=== PATIENT | female | born 1985 | race Caucasian/White ===

== ENCOUNTER 2018-08-01 17:15 | Outpatient (REF) | payer MEDICAID, SELFPAY ==
--- NOTE | 2018-08-01 15:00 | PAPFT_PTH ---
PATIENT: Bindu Diana LOC: N U#:[id number] AGE/SX: 32/F ROOM: RE08/01/[address]: CIRA Leon : 1985 BED: DIS: 08/01/2018 SPEC #: [id number] RECD: 08/01/18 18:49 STATUS: FARHEEN REDionna #: [id number] DIANE: 08/01/18 15:[address]: Layne Lee DEPT: [facility] Cytology RECD BY: Alycia Dobbs Tissues: 1 - CX/ENDOCX FOR PAP SMEARS Procedures: PAP THIN PREP/UVM Screening HPV DNA PROBE Comments: [id number]
== END 2018-08-01 17:35 ==
LOC: LBN 17:15
PROVIDERS: PCP Nurse Practitioner Family; Visit Provider Nurse Practitioner Family
DX: Z12.4 Encounter for screening for malignant neoplasm of cervix (principal); Z11.51 Encounter for screening for human papillomavirus (HPV)
CPT/HCPCS: 88142; 87624

== ENCOUNTER 2018-09-07 07:53 | Outpatient (CLI) | payer MEDICAID, SELFPAY ==
[2018-09-07 13:28] LABS: Cholesterol 231 mg/dL (50-200); HDL Cholesterol 68 mg/dL (40-60); LDL CHOLESTEROL 148 mg/dL (<100); Triglyceride 118 mg/dL (30-150)
== END 2018-09-07 08:13 ==
PROVIDERS: PCP Nurse Practitioner Family; Visit Provider Nurse Practitioner
DX: E05.90 Thyrotoxicosis, unspecified without thyrotoxic crisis or storm (principal); Z13.220 Encounter for screening for lipoid disorders
CPT/HCPCS: 36415; 80061; 83721; 84443

== ENCOUNTER 2018-09-26 14:14 | Outpatient (CLI) | payer MEDICAID, SELFPAY ==
[2018-09-26 15:58] LABS: FREE T4 1.11 ng/dL (0.76-1.46); TSH 3.05 uIU/mL (0.358-3.74)
== END 2018-09-26 14:34 ==
PROVIDERS: PCP Nurse Practitioner Family; Visit Provider Nurse Practitioner Family
DX: E05.90 Thyrotoxicosis, unspecified without thyrotoxic crisis or storm (principal)
CPT/HCPCS: 36415; 84439; 84443

== ENCOUNTER 2018-10-31 11:17 | Outpatient (CLI) | payer MEDICAID, SELFPAY ==
[2018-10-31 12:00] LABS: Abs Immature Grans 0.02 k/cumm (0.0-0.09); Absolute Basophil Count 0.02 k/cumm (0.0-0.2); Absolute Eosinophil Count 0.24 k/cumm (0.0-0.7); Absolute Lymphocyte Count 1.86 k/cumm (1.2-3.4); Absolute Monocyte Count 0.37 k/cumm (0.11-0.7); Absolute Neutrophil Count 4.67 k/cumm (1.2-6.7); Basophils % 0.3; Eosinophils % 3.3; HCT 36.4 % (36.0-46.0); HGB 12.6 g/dL (12.0-15.5); Immature Grans % 0.3; Lymphocytes % 25.9; Mean Corp. HGB Concentration 34.6 g/dL (32.0-36.0); Mean Corpuscular Hemoglobin 32.1 pg (27.0-33.0); Mean Corpuscular Volume 92.9 fL (80-95); Mean Platelet Volume 10.5 fL (8.0-11.0); Monocytes % 5.2; Platelet Count 219 x1000/uL (130-400); RBC 3.92 m/cumm (4.00-5.20); RBC Distribution Width 12.3 % (11.7-14.6); White Blood Cell Count 7.18 k/cumm (4.4-10.8)
[2018-10-31 13:09] LABS: *AMPHETAMINES SCREEN URINE Negative (Negative); *BARBITURATES SCREEN URINE Negative (Negative); *BENZODIAZEPINES SCREEN URINE Negative (Negative); Cannabinoids THC Negative (Negative); Cocaine Screen,Urine Negative (Negative); METHADONE URINE SCREEN Negative (Negative); OPIATES URINE SCREEN Negative (Negative)
[2018-10-31 13:15] LABS: Bilirubin Negative (Negative); Blood Negative (Negative); Clarity Cloudy; Glucose Negative (Negative); Ketones Negative (Negative); Leukocyte Esterase Negative (Negative); Nitrite Negative (Negative); Urobilinogen 0.2 EU/dL (Up TO 0.2)
[2018-10-31 13:22] LABS: Tricyclic Antidepressants Negative (Negative)
[2018-10-31 13:24] LABS: TSH (W/Ref FT4) 1.46 uIU/mL (0.358-3.74)
[2018-11-01 09:51] LABS: Hepatitis C Ab w Rflx HCV PCR Negative (NEGAT)
[2018-11-01 09:52] LABS: HIV-1/2 Ag & Ab Screen Negative (NEGAT)
[2018-11-01 10:01] LABS: Hepatitis B Surface Ag Negative (NEGAT)
[2018-11-01 11:39] LABS: Rubella IgG Ab (UVM) Positive; Syphilis Serology (RPR) Negative (Negative); Varicella IgG Antibody Positive
[2018-11-05 10:01] LABS: Buprenorphine Negative; Norbuprenorphine Negative
== END 2018-10-31 11:37 ==
PROVIDERS: PCP Nurse Practitioner Family; Visit Provider Advanced Practice Midwife
DX: Z34.91 Encounter for supervision of normal pregnancy, unspecified, first trimester (principal); Z11.4 Encounter for screening for human immunodeficiency virus [HIV]; Z11.59 Encounter for screening for other viral diseases; Z01.84 Encounter for antibody response examination; Z11.3 Encounter for screening for infections with a predominantly sexual mode of transmission
CPT/HCPCS: 36415; 80055; 80307; 86787; 86803; 86850; 86900; 86901; 87340; 87389; 81003; 84443; 86592; 86762; 87086

== ENCOUNTER 2018-12-19 00:40 | Outpatient (CLI) | payer MEDICAID, SELFPAY ==
--- NOTE | 2018-12-19 16:29 | DI.US_ITS ---
SYMPTOM/DIAGNOSIS: ROUTINE [facility] OB ULTRASOUND: The fetus was in variable position during the exam. The placenta is posterior. The biometric measurements correspond to 18 weeks 6 days. The amount of amniotic fluid appears visually normal. No abnormalities are seen. IMPRESSION: survey is within normal limits. Many abnormalities cannot be diagnosed. A normal exam does not exclude a congenital anomaly. Radiology No. [id number] LMP: Exam Date:12/19/18 [facility] wks days on EDC ([facility]) 05/20/19 Confirmed: HISTORY: SURVEY PREDICTED GESTATIONAL AGE NUMBER 18 +2 weeks with a range of 17 +2 week to 19 +2 weeks. 1 Determined by___1STUS___LMP___HISTORY Info. pertaining to fetus # PLACENTA PRESENTATION Grade I Cephalic___ Anterior___Posterior_XX__ Breech____ Right Left Transverse(head right___ Fundal___Low-lying___Previa___ Transverse(head left___ Varying___XX___ BIOMETRY AMNIOTIC FLUID BPD: 42 mm 18 +6 weeks Normal HC: 158 mm 18 +5 weeks AC: 133 mm 18 +6 weeks FL: 29 mm 19 weeks AMNIOTIC FLUID INDEX >26 WK CRL: mm weeks Cisterna Magna: 3.9 mm CI: 79.3 RUQ: LUQ Cerebellum: 1.84 cm EFW: 261 grams 79% Percentile RLQ: LLQ Total: cms Composite AGE= 18 +6 wks EDC by US__05/16/19 BIOPHYSICAL PROFILE ANATOMY IDENTIFIED SCORE 0/2 Heart: 4-Chamber_X__Rate:BPM___139 BPM__ LVOT:___X RVOT:__X Amniotic Fluid(>2cms)____ Stomach:__X Kidneys:__X Respirations (>30 secs) Bladder:___X Post. Fossa:__X Body Flex/Extension 3 vessel cord:__X Ventricles:___X cord insertion:__X___ Lips:___X_ Extremity Flex/Extension spinal morphology:__X Nose: X Total Score= Palate:__X NS=not seen
== END 2018-12-19 01:00 ==
PROVIDERS: PCP Nurse Practitioner; Visit Provider Advanced Practice Midwife
DX: Z34.92 Encounter for supervision of normal pregnancy, unspecified, second trimester (principal)
CPT/HCPCS: 76805

== ENCOUNTER 2018-12-19 13:59 | Outpatient (REF) | payer MEDICAID, SELFPAY ==
[2018-12-20 14:50] LABS: Chlamydia Result Negative; GC Result Negative; Specimen Description URINE
== END 2018-12-19 14:19 ==
LOC: LBN 13:59
PROVIDERS: PCP Nurse Practitioner; Visit Provider Advanced Practice Midwife
DX: Z34.91 Encounter for supervision of normal pregnancy, unspecified, first trimester (principal); Z11.3 Encounter for screening for infections with a predominantly sexual mode of transmission
CPT/HCPCS: 87491; 87591

== ENCOUNTER 2019-02-06 15:04 | Outpatient (CLI) | payer MEDICAID, SELFPAY ==
[2019-02-06 16:49] LABS: TSH (W/Ref FT4) 1.29 uIU/mL (0.358-3.74)
== END 2019-02-06 15:24 ==
PROVIDERS: PCP Nurse Practitioner; Visit Provider Advanced Practice Midwife
DX: E03.9 Hypothyroidism, unspecified (principal)
CPT/HCPCS: 36415; 84443

== ENCOUNTER 2019-02-27 02:00 | Outpatient (CLI) | payer MEDICAID, SELFPAY ==
[2019-02-27 08:21] LABS: HCT 35.4 % (36.0-46.0); Mean Corp. HGB Concentration 33.9 g/dL (32.0-36.0); Mean Corpuscular Hemoglobin 32.3 pg (27.0-33.0); Mean Corpuscular Volume 95.4 fL (80-95); Mean Platelet Volume 10.9 fL (8.0-11.0); Platelet Count 181 x1000/uL (130-400); RBC 3.71 m/cumm (4.00-5.20); RBC Distribution Width 12.8 % (11.7-14.6); White Blood Cell Count 8.66 k/cumm (4.4-10.8)
[2019-02-27 08:26] LABS: Glucose,1 Hr (Glucola) 112 mg/dL (80-140)
== END 2019-02-27 02:20 ==
PROVIDERS: PCP Nurse Practitioner; Visit Provider Advanced Practice Midwife
DX: Z34.93 Encounter for supervision of normal pregnancy, unspecified, third trimester (principal)
CPT/HCPCS: 36415; 82950; 85027

== ENCOUNTER 2019-04-07 01:07 | Outpatient (CLI) | payer MEDICAID, SELFPAY ==
--- NOTE | 2019-04-07 07:51 | DI.US_ITS ---
Predicted Gestational Age: Indication/History:GROWTH,CHECK NECK/THYROID HYPERTHYROIDISM, E05.00,TYROTOXICOSIS 33.6 Wks Range: 32.6 to 34.6 Prior US done on: Determined by: First US LMP History EDC by prior US: 05/20/19 For multiple gestations: Baby PLACENTA: Grade: II Location: Anterior Posterior X PRESENTATION: RT LT LOW LYING PREVIA Cephalic X Trans (Head RT LT ) Varied Breech BIOMETRY: Anatomy Identified: BPD: 87 mm 35.2 wks 4 chamber Heart Heart Rate BPM: 155 HC: 318 mm 35.5 wks LVOT Post Fossa AC: 305 mm 34.3 wks RVOT Ventricles FL: 66 mm 34.1 wks Stomach Nose Bladder Lips Cisterna Magna: mm CI: 79 Kidneys Palate Cerebellum: mm 3 vessel cord Spine EFW: 2463 grms 65TH % Cord Insertion NS= not seen Composite Age (US) 34.6 wks Many abnormalities cannot be diagnosed. A normal exam does not exclude congenital abnormality. EDC by US 05/13/19 Amniotic Fluid Index: Normal COMMENTS: RUQ: 6.04 LUQ: RLQ: 5.10 LLQ: 4.10 Total: 15.2 cm Biophysical Profile: Score 0/2 RAGHAVENDRA (>2cm) Respirations (>30 sec) Body flexion/extension Extremity flexion/extension TOTAL SCORE Comparison is made with 12/19/18. The fetus is in cephalic position. The placenta is posterior. The biometric measurements correspond to 34 weeks 6 days. The estimated weight is 2463 grams, corresponding to the 65th percentile. The amniotic fluid appears normal with an RAGHAVENDRA of 15.2. The neck is well seen on this exam. No abnormality is identified. The thyroid appears within normal limits in size.
[2019-04-07 09:13] LABS: FREE T4 1.12 ng/dL (0.76-1.46); TSH 0.77 uIU/mL (0.358-3.74)
[2019-04-14 16:41] LABS: Thyroid Stimulating Immunoglob <1.0 TSI index (<=1.3)
== END 2019-04-07 01:27 ==
PROVIDERS: PCP Nurse Practitioner; Visit Provider Advanced Practice Midwife
DX: E03.9 Hypothyroidism, unspecified (principal); E05.00 Thyrotoxicosis with diffuse goiter without thyrotoxic crisis or storm; Z34.93 Encounter for supervision of normal pregnancy, unspecified, third trimester
CPT/HCPCS: 36415; 76816; 84439; 84443; 84445

== ENCOUNTER 2019-04-24 10:35 | Outpatient (REF) | payer MEDICAID, SELFPAY ==
[2019-04-24 12:53] LABS: *AMPHETAMINES SCREEN URINE Negative (Negative); *BARBITURATES SCREEN URINE Negative (Negative); *BENZODIAZEPINES SCREEN URINE Negative (Negative); Cannabinoids THC Negative (Negative); Cocaine Screen,Urine Negative (Negative); METHADONE URINE SCREEN Negative (Negative); OPIATES URINE SCREEN Negative (Negative)
[2019-04-24 12:54] LABS: Tricyclic Antidepressants Negative (Negative)
[2019-04-29 11:40] LABS: Buprenorphine Negative; Norbuprenorphine Negative
== END 2019-04-24 10:55 ==
LOC: LBN 10:35
PROVIDERS: PCP Nurse Practitioner; Visit Provider Advanced Practice Midwife
DX: Z34.93 Encounter for supervision of normal pregnancy, unspecified, third trimester (principal); Z36.85 Encounter for antenatal screening for Streptococcus B
CPT/HCPCS: 80307; 87081

== ENCOUNTER 2019-04-30 10:16 | Outpatient (CLI) | payer MEDICAID, SELFPAY | END 2019-04-30 10:36 | PROVIDERS: PCP Nurse Practitioner; Visit Provider Advanced Practice Midwife | DX: O36.8930 Maternal care for other specified fetal problems, third trimester, not applicable or unspecified (principal); Z3A.37 37 weeks gestation of pregnancy | CPT/HCPCS: 59025 ==

== ENCOUNTER 2019-05-15 09:12 | Outpatient (CLI) | payer MEDICAID, SELFPAY ==
[2019-05-15 10:53] LABS: ALT 28 U/L (12-78); AST 24 U/L (15-37); Albumin 2.7 g/dL (3.4-5.0); Alkaline Phosphatase 306 U/L (46-116); Bilirubin, Direct 0.18 mg/dL (0.00-0.20); Bilirubin, Total 0.5 mg/dL (0.2-1.0); Total Protein 6.6 g/dL (6.4-8.2)
[2019-05-15 10:56] LABS: TSH (W/Ref FT4) 0.48 uIU/mL (0.358-3.74)
[2019-05-16 15:41] LABS: Bile Acids, Total 7 mcmol/L (<=10)
== END 2019-05-15 09:32 ==
PROVIDERS: Advanced Practice Midwife; PCP Nurse Practitioner; Visit Provider Advanced Practice Midwife
DX: Z34.93 Encounter for supervision of normal pregnancy, unspecified, third trimester (principal); E03.9 Hypothyroidism, unspecified
CPT/HCPCS: 36415; 80076; 82239; 84443

== ENCOUNTER 2019-05-16 07:53 | Outpatient (CLI) | payer MEDICAID, SELFPAY | END 2019-05-16 08:13 | PROVIDERS: PCP Nurse Practitioner; Visit Provider Advanced Practice Midwife | DX: O26.613 Liver and biliary tract disorders in pregnancy, third trimester (principal); Z3A.39 39 weeks gestation of pregnancy | CPT/HCPCS: 59025 ==

== ENCOUNTER 2019-05-18 14:09 | Outpatient (CLI) | payer MEDICAID, SELFPAY | END 2019-05-18 14:29 | PROVIDERS: PCP Nurse Practitioner; Visit Provider Advanced Practice Midwife | DX: O47.1 False labor at or after 37 completed weeks of gestation (principal); Z3A.39 39 weeks gestation of pregnancy ==

== ENCOUNTER 2019-05-18 14:13 | Observation (INO) | payer MEDICAID, SELFPAY | END 2019-05-18 14:30 | disposition home or self-care (01) | PROVIDERS: Admitting Provider Advanced Practice Midwife; PCP Nurse Practitioner; Visit Provider Advanced Practice Midwife | DX: O47.1 False labor at or after 37 completed weeks of gestation (principal); Z3A.39 39 weeks gestation of pregnancy | CPT/HCPCS: 59025; G0378 ==

== ENCOUNTER 2019-05-18 19:37 | Inpatient (IN) | payer MEDICAID, SELFPAY ==
[2019-05-18 20:04] LABS: HCT 39.9 % (36.0-46.0); HGB 13.5 g/dL (12.0-15.5); Mean Corp. HGB Concentration 33.8 g/dL (32.0-36.0); Mean Corpuscular Hemoglobin 31.3 pg (27.0-33.0); Mean Corpuscular Volume 92.4 fL (80-95); Mean Platelet Volume 12.2 fL (8.0-11.0); Platelet Count 136 x1000/uL (130-400); RBC 4.32 m/cumm (4.00-5.20); RBC Distribution Width 12.8 % (11.7-14.6); White Blood Cell Count 10.27 k/cumm (4.4-10.8)
[2019-05-18] MEDS: Oxytocin 10 UNITS/ML VIAL IM (21:03)
[2019-05-19] MEDS: Acetaminophen 325 MG TAB 650 MG PO ×3 (05:35→20:07)
[2019-05-19] MEDS: Levothyroxine 100 MCG TAB PO (06:43)
[2019-05-19 07:15] LABS: HCT 42.3 % (36.0-46.0); HGB 14.2 g/dL (12.0-15.5); Mean Corp. HGB Concentration 33.6 g/dL (32.0-36.0); Mean Corpuscular Hemoglobin 31.3 pg (27.0-33.0); Mean Corpuscular Volume 93.4 fL (80-95); Mean Platelet Volume 12.2 fL (8.0-11.0); Platelet Count 131 x1000/uL (130-400); RBC 4.53 m/cumm (4.00-5.20); White Blood Cell Count 14.97 k/cumm (4.4-10.8)
[2019-05-19] MEDS: Ibuprofen 600 MG TAB PO ×2 (10:50→20:07)
[2019-05-20] MEDS: Levothyroxine 100 MCG TAB PO (06:19)
[2019-05-20] MEDS: Acetaminophen 325 MG TAB 650 MG PO (06:51)
[2019-05-20] MEDS: Ibuprofen 600 MG TAB PO (06:51)
== END 2019-05-20 13:00 | disposition home or self-care (01) | DRG 807 ==
PROVIDERS: Admitting Provider Advanced Practice Midwife; PCP Nurse Practitioner; Visit Provider Advanced Practice Midwife
DX: O62.3 Precipitate labor (principal); Z37.0 Single live birth; Z3A.39 39 weeks gestation of pregnancy; Z67.40 Type O blood, Rh positive
CPT/HCPCS: 36415; 85027; 86850; 86900; 86901; J2590

== ENCOUNTER 2019-08-24 13:34 | Outpatient (CLI) | payer MEDICAID, SELFPAY ==
[2019-08-24 14:46] LABS: TSH (W/Ref FT4) 0.13 uIU/mL (0.36-3.74)
[2019-08-24 15:12] LABS: FREE T4 0.93 ng/dL (0.76-1.46)
== END 2019-08-24 13:54 ==
PROVIDERS: PCP Nurse Practitioner; Visit Provider Nurse Practitioner
DX: E03.9 Hypothyroidism, unspecified (principal)
CPT/HCPCS: 36415; 84439; 84443

== ENCOUNTER 2019-11-02 17:01 | Outpatient (REF) | payer MEDICAID, SELFPAY | END 2019-11-02 17:21 | LOC: NCHCN 17:01 | PROVIDERS: PCP Nurse Practitioner; Visit Provider Advanced Practice Midwife | DX: R39.15 Urgency of urination (principal) | CPT/HCPCS: 87086 ==

== ENCOUNTER 2020-08-16 02:42 | Outpatient (CLI) | payer MEDICAID, SELFPAY ==
[2020-08-16 08:27] LABS: TSH (W/Ref FT4) 0.48 uIU/mL (0.36-3.74)
== END 2020-08-16 03:02 ==
PROVIDERS: PCP Nurse Practitioner; Visit Provider Nurse Practitioner Adult Health
DX: E03.9 Hypothyroidism, unspecified (principal)
CPT/HCPCS: 36415; 84443

== ENCOUNTER 2020-09-12 14:39 | Outpatient (REF) | payer MEDICAID, SELFPAY ==
[2020-09-13 15:40] LABS: Chlamydia Result Negative (Negative); GC Result Negative (Negative)
== END 2020-09-12 14:59 ==
LOC: LBN 14:39
PROVIDERS: PCP Nurse Practitioner; Visit Provider Nurse Practitioner Family
DX: Z11.3 Encounter for screening for infections with a predominantly sexual mode of transmission (principal)
CPT/HCPCS: 87491; 87591

== ENCOUNTER 2020-09-23 02:11 | Outpatient (CLI) | payer MEDICAID, SELFPAY ==
--- NOTE | 2020-09-23 06:15 | DI.US_ITS ---
EXAM: US PELVIS TRANSVAGINAL CLINICAL HISTORY: abnormal vaginal bleeding,N93.9. TECHNIQUE: Transabdominal and transvaginal pelvic ultrasound was performed using standard protocol. COMPARISON: US US OB 2-3 trimester from 04/07/2019 FINDINGS: KIDNEYS: Kidneys are symmetric in size. No evidence of renal calculi. No evidence of hydronephrosis. No renal mass or cyst identified. UTERUS: Position: Anteverted. Size: 9.3 long by 4.9 AP by 5.9 transverse cm Endometrium: 0.7 cm. Normal for patient's menstrual status. Myometrium: Unremarkable. Cervix: Unremarkable. OVARIES: Right: 3.4 x 1.4 x 1.9 cm Cyst or mass: Small follicular cysts. Left: 2.2 x 1.7 x 1.8 cm Cyst or mass: Small follicular cysts. The largest measures 1 cm. DOPPLER: Color: Symmetric and uniform flow to both ovaries. No hyperemia. Duplex: Normal ovarian arterial waveforms visualized. CUL-DE-SAC: Free fluid: None. Other: None. IMPRESSION: 1. Normal sonographic appearance of the kidneys. 2. Normal-appearing uterus with endometrial stripe within normal limits. 3. Unremarkable bilateral ovaries. DATA REPOSITORY:
== END 2020-09-23 02:31 ==
PROVIDERS: PCP Nurse Practitioner; Visit Provider Nurse Practitioner Family
DX: N93.9 Abnormal uterine and vaginal bleeding, unspecified (principal)
CPT/HCPCS: 76830; 76856

== ENCOUNTER 2021-06-09 18:35 | Outpatient (REF) | payer MEDICAID, SELFPAY | END 2021-06-09 18:36 | disposition home or self-care (01) | LOC: LBN 18:35 | PROVIDERS: PCP Nurse Practitioner; Visit Provider Obstetrics & Gynecology | DX: N93.8 Other specified abnormal uterine and vaginal bleeding (principal) | CPT/HCPCS: 87480; 87510; 87660 ==

== ENCOUNTER 2021-06-30 01:41 | Outpatient (CLI) | payer MEDICAID, SELFPAY ==
--- NOTE | 2021-06-30 06:45 | DI.US_ITS ---
Exam(s) US PELVIS TRANSVAGINAL EXAM: US PELVIS TRANSVAGINAL CLINICAL HISTORY: check stripe,DYSFUNCTIONAL UTERINE BLEEDING,N93.8 TECHNIQUE: Transabdominal and transvaginal imaging was performed using standard protocol. COMPARISON: US US PELVIS TRANSVAGINAL from 09/23/2020 FINDINGS: KIDNEYS: Kidneys are symmetric in size. No evidence of renal calculi. No evidence of hydronephrosis. No renal mass or cyst identified. UTERUS: Anteverted. 8.4 x 4.4 x 5.2 cm. Endometrium: 5 millimeters. Homogeneous. Myometrium: Unremarkable. Cervix: Unremarkable. OVARIES: Right: Cyst or mass: None. Left: Cyst or mass: None. DOPPLER: Color: Symmetric and uniform flow to both ovaries. No hyperemia. Duplex: Normal ovarian arterial waveforms visualized. CUL-DE-SAC: Free fluid: None. IMPRESSION: 1. Normal-appearing uterus with endometrial stripe within normal limits. 2. Unremarkable bilateral ovaries. DATA REPOSITORY:
== END 2021-06-30 02:01 ==
PROVIDERS: PCP Nurse Practitioner; Visit Provider Obstetrics & Gynecology
DX: N93.8 Other specified abnormal uterine and vaginal bleeding (principal)
CPT/HCPCS: 76830; 76856

== ENCOUNTER 2021-09-08 13:09 | Outpatient (REF) | payer MEDICAID, SELFPAY | END 2021-09-08 13:10 | disposition home or self-care (01) | LOC: LBN 13:09 | PROVIDERS: PCP Nurse Practitioner; Visit Provider Obstetrics & Gynecology | DX: N93.8 Other specified abnormal uterine and vaginal bleeding (principal) | CPT/HCPCS: 87480; 87510; 87660 ==

== ENCOUNTER 2021-11-11 02:14 | Outpatient (CLI) | payer MEDICAID, SELFPAY ==
[2021-11-11 07:38] LABS: HCT 39.9 % (36.0-46.0); HGB 13.3 g/dL (11.2-15.7); MCH 30.9 pg (27.0-33.0); MCHC 33.3 % (32.0-36.0); MCV 92.6 fL (80-95); MPV 10.7 fL (8.0-11.0); Platelet Count 185 10^3/uL (130-400); RBC 4.31 10^6/uL (3.93-5.22); RDW 11.8 % (11.7-14.6); RDW-SD 40.2 fL; WBC 4.69 10^3/uL (4.4-10.8)
[2021-11-11 08:51] LABS: ALT 18 U/L (14-59); AST 9 U/L (15-37); Albumin 4.3 g/dL (3.4-5.0); Alkaline Phosphatase 50 U/L (46-116); Anion Gap 8.1 mmol/L (3-11); BUN 17 mg/dL (7-18); Bilirubin, Total 0.4 mg/dL (0.2-1.0); CO2 28.9 mmol/L (21.0-32.0); CREATININE 0.9 mg/dL (0.55-1.02); Calcium 9.1 mg/dL (8.5-10.1); Calculated LDL 160 mg/dL (<100); Chloride 103 mmol/L (98-107); Cholesterol 246 mg/dL (<200); Glucose 96 mg/dL (74-106); HDL Cholesterol 74 mg/dL (40-60); Potassium 4.4 mmol/L (3.5-5.1); Sodium 140 mmol/L (136-145); TSH (W/Ref FT4) 0.72 uIU/mL (0.36-3.74); Total Protein 7.8 g/dL (6.4-8.2); Triglyceride 61 mg/dL (<150)
== END 2021-11-11 02:15 | disposition home or self-care (01) ==
LOC: LBO 02:14
PROVIDERS: PCP Nurse Practitioner; Visit Provider Nurse Practitioner Adult Health
DX: E03.9 Hypothyroidism, unspecified (principal); E78.00 Pure hypercholesterolemia, unspecified; N93.8 Other specified abnormal uterine and vaginal bleeding
CPT/HCPCS: 36415; 80053; 80061; 85027; 84443

== ENCOUNTER 2022-11-17 12:19 | Outpatient (REF) | payer MEDICAID, SELFPAY | END 2022-11-17 12:20 | disposition home or self-care (01) | LOC: LBN 12:19 | PROVIDERS: PCP Nurse Practitioner Adult Health; Referring Provider Family Medicine; Visit Provider Family Medicine | DX: R30.0 Dysuria (principal) | CPT/HCPCS: 87086 ==

== ENCOUNTER 2022-11-20 15:22 | Outpatient (REF) | payer MEDICAID, SELFPAY ==
[2022-11-22 12:33] LABS: Chlamydia Result Negative (Negative); GC Result Negative (Negative)
== END 2022-11-20 15:23 | disposition home or self-care (01) ==
LOC: LBN 15:22
PROVIDERS: PCP Nurse Practitioner Adult Health; Visit Provider Obstetrics & Gynecology
DX: Z11.3 Encounter for screening for infections with a predominantly sexual mode of transmission (principal)
CPT/HCPCS: 87491; 87591

== ENCOUNTER 2022-12-17 02:31 | Outpatient (CLI) | payer MEDICAID, SELFPAY ==
[2022-12-17 16:31] LABS: TSH (W/Ref FT4) 0.56 uIU/mL (0.36-3.74)
== END 2022-12-17 02:32 | disposition home or self-care (01) ==
LOC: LBO 02:31
PROVIDERS: PCP Nurse Practitioner Adult Health; Visit Provider Nurse Practitioner Adult Health
DX: E03.9 Hypothyroidism, unspecified (principal)
CPT/HCPCS: 36415; 84443

== ENCOUNTER 2023-01-05 00:18 | Outpatient (CLI) | payer MEDICAID, SELFPAY ==
--- NOTE | 2023-01-05 06:45 | DI.US_ITS ---
Exam(s) US PELVIS TRANSVAGINAL EXAM: US PELVIS TRANSVAGINAL CLINICAL HISTORY: anatomy,ABNL VAGINAL BLEEDING, N93.9 TECHNIQUE: Ultrasound of the pelvis was performed both transabdominal and transvaginal. COMPARISON: US US PELVIS TRANSVAGINAL from 06/30/2021 FINDINGS: UTERUS: Nongravid and anteverted Measures 9 cm length x 4 cm AP x 6 cm wide. There appears to be a small fundal level fibroid measuring 1.4 x 1.0 cm. Endometrial thickness measures 4 mm. There is no fluid in the endometrial canal. There is, however, small hyperechoic sub endometrial foc us related to the posterior endometrium at mid uterine level. This measures approximately 2-3 millim eters. CERVIX: There are no obvious nabothian cysts. RIGHT OVARY: Measures 3.2 x 2.0 x 2.5 cm No significant cysts nor masses evident in the right ovary. LEFT OVARY: Measures 2.6 x 1.3 x 2.1 cm No significant cysts nor masses evident in the left ovary. CUL-DE-SAC: No free fluid evident. IMPRESSION: 1. Small 1.4 x 1.0 cm uterine fibroid. 2. Small hyperechoic focus subendometrial level in the posterior endometrium which measures 3 millime ters. Possible small calcific density. Benign appearance. Recommend repeat transvaginal ultrasound in 3 months. 3. No abnormal adnexal findings. No free fluid. DATA REPOSITORY:
== END 2023-01-05 00:38 ==
LOC: DI 00:19
PROVIDERS: PCP Nurse Practitioner Adult Health; Visit Provider Obstetrics & Gynecology
DX: N93.9 Abnormal uterine and vaginal bleeding, unspecified (principal)
CPT/HCPCS: 76830; 76856

== ENCOUNTER 2023-01-05 15:55 | Outpatient (REF) | payer MEDICAID, SELFPAY ==
--- NOTE | 2023-01-05 10:50 | PAPFT_PTH ---
PATIENT: Bindu Diana LOC: [facility]#:[id number] AGE/SX: 37/F ROOM: RE01/05/[address]: Sasha Hawley DO : 1985 BED: DIS: 01/05/2023 SPEC #: [id number] RECD: 01/05/23 17:08 STATUS: FARHEEN REQ #: [id number] DIANE: 01/05/23 10:[address]: Sasha Hawley DEPT: [facility] Cytology RECD BY: Alycia Dobbs ENTERED: 01/05/23 17:09 SP TYPE: PAPFT OTHR DR: Marylou Mcdowell APRN Tissues: 1 - CX/ENDOCX FOR PAP SMEARS Procedures: PAP THIN PREP/UVM Screening HPV DNA PROBE Comments: [id number]
== END 2023-01-05 15:56 | disposition home or self-care (01) ==
LOC: LBN 15:55
PROVIDERS: PCP Nurse Practitioner Adult Health; Visit Provider Obstetrics & Gynecology
DX: Z12.4 Encounter for screening for malignant neoplasm of cervix (principal); Z11.51 Encounter for screening for human papillomavirus (HPV)
CPT/HCPCS: 88142; 87624

== ENCOUNTER 2023-04-26 03:25 | Outpatient (CLI) | payer MEDICAID, SELFPAY ==
[2023-04-26 08:12] LABS: Abs Immature Grans 0.02 10^3/uL (0.0-0.06); Absolute Basophil Count 0.05 10^3/uL (0.0-0.2); Absolute Eosinophil Count 0.22 10^3/uL (0.0-0.7); Absolute Lymphocyte Count 1.44 10^3/uL (1.2-3.4); Absolute Monocyte Count 0.35 10^3/uL (0.1-0.8); Absolute Neutrophil Count 4.24 10^3/uL (1.2-6.7); Basophils % 0.8; Eosinophils % 3.5; HCT 39.9 % (36.0-46.0); HGB 13.2 g/dL (11.2-15.7); Immature Grans % 0.3; Lymphocytes % 22.8; MCH 31.7 pg (27.0-33.0); MCHC 33.1 % (32.0-36.0); MCV 96 fL (80-95); MPV 10.9 fL (8.0-11.0); Monocytes % 5.5; Neutrophils % 67.1; Platelet Count 177 10^3/uL (130-400); RBC 4.16 10^6/uL (3.93-5.22); RDW 12.1 % (11.7-14.6); RDW-SD 41.7 fL; WBC 6.32 10^3/uL (4.4-10.8)
== END 2023-04-26 03:26 | disposition home or self-care (01) ==
LOC: LBO 03:25
PROVIDERS: PCP Nurse Practitioner Adult Health; Visit Provider Obstetrics & Gynecology
DX: N93.8 Other specified abnormal uterine and vaginal bleeding (principal); D25.9 Leiomyoma of uterus, unspecified; Z01.818 Encounter for other preprocedural examination; Z01.812 Encounter for preprocedural laboratory examination
CPT/HCPCS: 36415; 86850; 86900; 86901; 85025

== ENCOUNTER 2023-04-28 06:21 | Inpatient (IN) | payer MEDICAID, SELFPAY ==
[2023-04-28] VITALS (26 sets, daily range): BP systolic 85–123; BP diastolic 47–79; PULSE 53–89; RESP 14–19; TEMP 34.7–36.7; O2SAT 95–100; BMI 21.8
--- NOTE | 2023-04-28 06:15 | W.ANESPRE ---
General Info Date of Service Date Performed: 04/28/23 Height: 5 ft 5 in Weight: 59.421 kg Body Mass Index (BMI): 21.8 Surgical Procedure: Operation Date: 04/28/23 07:40 Proposed Procedure Side Surgeon p Hysterectomy Vaginal Laparoscopic Assist, Bi-lat Salpingectomy, Possible NANCY, Cysto Sasha Hawley DO Meds Allergies and Home Medications Allergies Allergy/AdvReac Type Severity Reaction Status Date / Time shellfish derived Allergy Severe anaphalaxis Verified 04/28/23 06:36 methimazole Allergy Unknown rash and Verified 04/28/23 06:36 hives Home Medication Medication Instructions Recorded turkey tail 1 cap PO DIRECTED Immune health 08/28/20 magnesium oxide 400 mg PO DAILY 12/04/20 cranberry 400 mg capsule 400 mg PO DAILY 09/08/21 ascorbic acid 100 mg-elderberry 1 tab PO DAILY 12/05/21 fruit 50 mg chewable tablet multivitamin (Multiple Vitamins 1 tab PO DAILY 11/20/22 tablet) levothyroxine 100 mcg tablet 100 mcg PO DAILY #90 tabs 01/11/23 Current Visit Medications: Current Medications Generic Name Dose Route Start Last Admin Trade Name Freq PRN Reason Stop Dose Admin Ringer's Solution 1,000 mls @ 125 mls/hr 04/28/23 06:00 IV 05/27/23 23:59 INFUSION MARY JO Cefazolin Sodium/Dextrose 2 gm in 50 mls @ 100 mls/hr 04/28/23 06:00 Ancef Duplex IVPB 04/28/23 16:00 PREOP MARY JO IV Miscellaneous Supplies 1 each 04/28/23 06:00 Iv Access IV 05/27/23 23:59 DIRECTED MARY JO Sodium Chloride 0 ml 04/28/23 06:00 Normal Saline Flush 10 Ml Syr IV 05/27/23 23:59 PRN PRN Sodium Chloride 0 ml 04/28/23 06:00 Normal Saline 10 Ml Vial IJ 05/27/23 23:59 DIRECTED PRN Sterile Water 0 ml 04/28/23 06:00 Water,Injection,Sterile 10 Ml Vial IJ 05/27/23 23:59 DIRECTED PRN PFSH Active Problems Active Problems: Problem Status Onset Code Uterine fibroid D25.9 Yeast vaginitis B37.31 Urinary tract infection N39.0 Family history of first degree relative with dementia Z81.8 Elevated cholesterol E78.00 DUB (dysfunctional uterine bleeding) N93.8 Bacterial vaginosis N76.0, B96.89 Frequent headaches R51.9 Abnormal vaginal bleeding N93.9 Spotting N92.0 Urinary urgency R39.15 History of tobacco use Z87.891 Hypothyroid E03.9 Medical History Medical History Graves disease (05/15/14) [facility] 04/2014 Hyperthyroidism (04/18/14) Dx'ed 03/2014 (tachy on exam) REFER [facility] Infected sebaceous cyst of skin right cheek Surgical History Surgical History excision Follicuolar cyst w/ BX rgt cheek (02/25/17) Tobacco Smoking/Tobacco Use Status: Former Tobacco Use Alcohol Alcohol Intake: never Substance Use Substance use: Never Substance use type: does not use Prental History History 4 Para 4 Hx # Term Pregnancies 4 Multiple births 0 Hx # Pregnancies 0 Ectopic pregnancies 0 AB induced 0 Hx Number of Living Children 4 AB spontaneous 0 Past Pregnancies Del. Date GA/Weeks # Preg Succ Route Wgt Sex Labor Lgth Anesthesia Location Prov Complic 01/16/10 39 No vaginal 3486.991 g Male 3 hrs [facility] - Dr. Valladares 12/31/11 38 No vaginal 3543.69 g Female very fast, delivered on arrival [facility] - Dr. Valladares 10/09/16 38 No vaginal Female 3 hrs [facility] - [facility] 05/18/19 39 No vaginal 3997.283 g Male 1 hour 26 min. Ousmane Ag CNM Delivery Date: 10/09/16 Last Updated by: Flores Zhang nuchal arm Delivery Date: 05/18/19 Last Updated by: Mily Barr LPN precipitous labor ( < 3 hrs.) Vital Signs and Lab Results Vital Signs Most Recent Vital Signs in EMR: Temp Pulse Resp BP Pulse Ox 36.4 C L 89 18 123/67 100 04/28/23 06:20 04/28/23 06:20 04/28/23 06:20 04/28/23 06:20 04/28/23 06:20 Lab Results Blood Type / Crossmatch: Patient ABO/Rh O Positive 04/26/23 Antibody Screen NEGATIVE 04/26/23 Complete Blood Count: White Blood Count 6.32 10^3/uL (4.4-10.8) 04/26/23 08:05 Red Blood Count 4.16 10^6/uL (3.93-5.22) 04/26/23 08:05 Hemoglobin 13.2 g/dL (11.2-15.7) 04/26/23 08:05 Hematocrit 39.9 % (36.0-46.0) 04/26/23 08:05 Platelet Count 177 10^3/uL (130-400) 04/26/23 08:05 Complete Metabolic Panel: No Data to Display Liver Function Panel: No Data to Display Coagulation Panel: No Data to Display Cardiac Panel: No Data to Display Arterial Blood Gas: No Data to Display Venous Blood Gas: No Data to Display Pancreas Panel: No Data to Display Thyroid Panel: No Data to Display Infectious Disease: No Data to Display Blood Cultures: No Data to Display Toxicology Panel: No Data to Display Panel: No Data to Display Anesthesia Assessment and Plan Anesthesia History Personal History: No History of Anesthesia Complications Family History: No Family History of Anesthesia Complications Exercise Tolerance Exercise Tolerance: Metabolic Equivalents>4 Cardiac & Pulmonary Exam Cardiac Exam: Normal S1/S2 Heart Sounds Pulmonary Exam: Clear Bilateral Breath Sounds Implantable Cardiac Device Does patient have a Pacemaker or an ICD?: No Airway Exam Known Difficult Airway: No Mallampati Class: 3 Mouth Opening: Narrow (< 3cm) Thyromental Distance: Less than 3 cm Neck Range of Motion: Full ROM Neck Circumference: Normal Teeth Condition: Normal Dentition ASA Classification ASA Score: ASA 2 Emergency Case?: No NPO Status NPO Status: NPO Clears >2 hours, Solids >8 hours Status Status: Not Relevant due to Medical History Anesthesia Plan Resuscitation Status: Full Code Anesthesia Technique: General Anesthesia Airway Planned: Endotracheal Tube Monitors Used: Standard Monitors Preoperative Comments:: 37 yo female with abnormal bleeding for hysterectomy. Sig PMHx: former smoker, HTN, hyperthyroid/graves (followed at [facility] [place]. had hyperthyroid burnout and now hypothyroid, last TSH 0.56, on levothyroxine).
[2023-04-28] MEDS: Lactated Ringers 1,000 ML 125 ML IV ×3 (06:52→19:00)
[2023-04-28] MEDS: ceFAZolin 2 GM/50 ML BAG IVPB (08:00)
--- NOTE | 2023-04-28 09:15 | UTER_PTH ---
PATIENT: Bindu Diana LOC: OBS U#:[id number] AGE/SX: 37/F ROOM: OBS.305 RE04/28/[address]: Sasha Hawley DO : 1985 BED: A DIS: 04/29/2023 SPEC #: [id number] RECD: 04/28/23 11:01 STATUS: FARHEEN REQ #: [id number] DIANE: 04/28/23 09:[address]: Sasha Hawley DEPT: Surgical Specimen RECD BY: Alycia Dobbs ENTERED: 04/28/23 11:02 SP TYPE: UTER OTHR DR: Marylou Mcdowell APRN Tissues: 1 - UTERUS W OR W/O OVARIES(NOT TUMOR/PROLAPSE) Procedures: GROSS AND MICRO LEVEL 5 Comments: [id number]
[2023-04-28] MEDS: Bupivacaine 0.5% Pres-Free 30 ML VIAL (10:13)
--- NOTE | 2023-04-28 10:23 | ROE_ITS ---
Date of service: 04/28/23 Time of Service: : Operative Note Operative Note DATE OF PROCEDURE: 04/28/23 PRE-OP DIAGNOSIS: Abnormal uterine bleeding, uterine fibroids POST-OP DIAGNOSIS: same Prominent pelvic vasculature PROCEDURE: Laparoscopically assisted vaginal hysterectomy with bilateral salpingectomy and cystoscopy SURGEON: Sasha Hawley ANESTHESIA TYPE: Local By Surgeon, General LMA/ETT and Spinal Refer to Anesthesia Record ESTIMATED BLOOD LOSS: 200 PATHOLOGY: other (Bilateral fallopian tubes, uterus, cervix) COMPLICATIONS: None Patient was transported to: PACU Patient's condition: stable Indications: Ongoing abnormal uterine bleeding and uterine fibroid Findings: Normal-appearing ovaries, small benign-appearing left ovarian cyst. Normal- appearing uterus. Prominent pelvic vasculature. Procedure Description: After full informed consent was obtained, patient was taken the operating suite with an IV running. She was placed in the seated position and spinal anesthesia administered for postoperative pain control. At this point she was placed in the dorsal supine position and endotracheal intubation performed for the administration of general anesthesia with ease. At this point she was placed in the modified dorsal lithotomy position in [facility] stirrups and prepped and draped in the usual sterile fashion. Pneumatic compression stockings were placed for DVT prophylaxis. She received 2 g of Ancef for surgical site infection prophylaxis. Casper catheter was inserted for continuous bladder drainage. A timeout was performed. Exam under anesthesia revealed a uterus that was midline and mobile, approximately 8 weeks size. There is no evidence of pelvic mass. At this point speculum was inserted into the vaginal vault and a Hulka uterine manipulator placed within. Speculum was then removed and attention turned to the abdomen where after infiltration with quarter percent Marcaine a subumbilical incision was made. The anterior abdominal wall was elevated with penetrating towel clips and a varies needle inserted directly into the abdomen. Pneumoperitoneum was created with a maximum pressure of 15 mmHg with CO2 gas. At this point under direct visualization an Optiview port was placed for placement of a 10 mm scope. The entire abdomen was inspected and found to be atraumatic and free of disease. A second and third right and left lower quadrant trocar site were placed after infiltration with quarter percent Marcaine under direct visualization. At this point the uterus was elevated and the abdomen and pelvis explored. There is noted to be a uterus that is mobile, approximately 8 weeks size, and prominent uterine vasculature. Ovaries appeared normal bilaterally with a benign appearing left ovarian cyst. At this point the left fallopian tube was elevated and cautery transected for removal and a similar procedure carried out on the left fallopian tube. At this point attention was turned to the right utero- ovarian ligament which was cautery transected and ligated and the right round ligament was cautery transected. Similar procedure was carried out on the left utero-ovarian ligament, and the left round ligament. The broad ligament on the left was then and the anterior leaf used to create the bladder flap anteriorly. The remainder of the bladder flap was created on the right anterior leaf of the broad ligament as well. Uterine vessels on the right were cauterized and a similar procedure carried out on the uterine vessels on the left. At this point with hemostatic pedicles, attention was turned to the vaginal vault. Pneumoperitoneum was released and a weighted speculum placed into the posterior vaginal vault. Andi clamps were used to grasp the anterior and posterior lip of the cervix and in a circumferential fashion with Bovie cautery and incision was made at the cervical vaginal interface. The posterior peritoneum was then identified and entered sharply allowing entry into the posterior cul-de-sac. The right and left uterosacral cardinal complex ligaments were grasped with 7 clamps transected and ligated. The anterior cul-de-sac was then entered meticulously with sharp dissection. The remainder of the uterine pedicles both on the right and left were clamped transected and suture-ligated. This allowed delivery of the uterus and cervix through the vaginal vault. The posterior vaginal cuff was then oversewn with a running locked stitch for hemostasis and reapproximation of the peritoneum. At the vaginal cuff was then closed using 0 Vicryl suture in a running locked fashion and noted to be hemostatic. There is incorporation of the uterosacral cardinal complexes at the bilateral apices for appropriate vaginal support. At this point with completion of the vaginal portion of the procedure attention was returned to the abdomen. Pneumoperitoneum was recreated and the abdomen was meticulously inspected and irrigated. The vaginal cuff was hemostatic. Left utero-ovarian ligament was hemostatic. There was an area at the right round ligament which was not hemostatic which was clipped with a stapling device under direct visualization this allowed for hemostasis at the right round ligament. Again the abdomen was reinspected. Cuff edge and remaining pedicles inspected. Pneumoperitoneum released to a pressure of 3 mmHg and again all pedicles and cuff were noted to be hemostatic. At this point the surgical portion of the procedure was terminated and patient received indigo carmine. Ports were removed from the abdomen. Infraumbilical fascial incision was closed using 0 Vicryl suture and the skin edges were reapproximated with 4-0 undyed Monocryl and Steri-Strips and sterile dressing was placed. Cystoscopy was then performed with instillation of approximately 300 cc of normal saline into the bladder. The entirety of the bladder including dome were inspected and found to be free of trauma. Both ureteric orifice ease were jetting blue-tinged urine appropriately. This completed the procedure and cystoscope removed and Casper catheter replaced. Patient was returned to the dorsal supine position and awoke from anesthesia with ease. She was to taken to the postoperative care unit in stable condition with a Casper catheter draining blue-tinged urine. Complications: None apparent Pathology: Bilateral fallopian tubes, uterus, cervix Fluids: Crystalloid per anesthesia EBL: 200 mL
[2023-04-28] MEDS: Ketorolac 30 MG/ML VIAL 15 MG IVP ×3 (10:36→22:01)
--- NOTE | 2023-04-28 10:46 | W.ANESPOSTOP ---
Postoperative Evaluation Date, Time and Location Date Performed: 04/28/23 Time Performed: 10:46 Patient Location: PACU Vital Signs Most Recent Imported Vital Signs: Most Recent Vital Signs Temp Pulse Resp BP Pulse Ox 36.4 C L 72 14 94/72 L 100 04/28/23 10:40 04/28/23 10:40 04/28/23 10:40 04/28/23 10:40 04/28/23 10:40 Pain Score Most Recent Pain Score: Most Recent Pain Score Pain Level 0 04/28/23 10:40 Assessment Mental Status: Awake (Alert & Oriented to Patient Baseline) Airway and Respiratory Function: Patent airway with normal (patient baseline) respiratory exam Cardiovascular Function: Hemodynamically Stable Hydration Status: Adequately Hydrated Nausea & Vomiting: No Nausea or Vomiting Pain: Pain is tolerable per patient Peripheral Nerve Block: Patient did not receive a nerve block
[2023-04-28] MEDS: Normal Saline 500 ML 999 ML IV (11:40)
--- NOTE | 2023-04-28 12:02 | W.PM.PROGNOT ---
Date of Service Date of service: 04/28/23 Time of Service: 12:03 Assessment and Plan Assessment and plan (1) Status post laparoscopic assisted vaginal hysterectomy (LAVH): Status: Acute Assessment and plan: Postop day 0, in the immediate postoperative period status post laparoscopically assisted vaginal hysterectomy with bilateral salpingectomy and cystoscopy. Uncomplicated surgical procedure. Postoperative blood pressures in the 80s over 50s range without other symptomatology. Anesthesia notified and care discussed. We will continue to monitor closely. Subjective Subjective Interval history since last seen: Called to the floor regarding patient with soft blood pressures of 80s over 50s. Pulse is 50s to 60s. Urine output since the time of surgery unable to be assessed in light of the fact that her Casper catheter had not been emptied from the recovery room, however clearing blue-tinged urine in the Casper catheter tubing. Nursing had been instructed to give a 500 cc bolus of normal saline. Case discussed with anesthesia who has concerns that this may be related to preoperative and intraoperative medications of Precedex. On evaluation of the patient she is alert, awake, somewhat tired. Having no pain. Abdomen is soft and nontender. There is no distention. Incisions are dressed and dry. Will place a urometer. Monitor vital signs. Anesthesia to give ephedrine x1 dose. Continue to monitor closely. Objective Last Vital Signs Temp 97.5 F L 04/28/23 10:40 Pulse 72 04/28/23 10:40 Resp 14 04/28/23 10:40 BP 94/72 L 04/28/23 10:40 Pulse Ox 100 04/28/23 10:40 Time Spent with Patient Time Spent with Patient: <25 minutes Time was spent: preparing to see the patient(eg.review tests), ordering medications,tests, procedures and counseling the patient
[2023-04-28] MEDS: ePHEDrine 50 MG/ML VIAL 25 MG IM (12:07)
[2023-04-28] MEDS: Ondansetron 4 MG/2 ML VIAL IVP (15:08)
[2023-04-28] MEDS: Normal Saline Flush 10 ML SYR IV ×4 (15:08→17:54)
--- NOTE | 2023-04-28 17:22 | W.PM.PROGNOT ---
Date of Service Date of service: 04/28/23 Time of Service: 17:22 Assessment and Plan Assessment and plan (1) Status post laparoscopic assisted vaginal hysterectomy (LAVH): Status: Acute Assessment and plan: Postoperative day #2 status post laparoscopically assisted vaginal hysterectomy with bilateral salpingectomy. Overall doing reasonably well. Did have some blood pressures earlier today with resolution. Pulses stable. Some episodes of nausea with one episode of emesis. Abdomen is soft and nontender. Clinically benign appearing. Will medicate appropriately for nausea. Continue to monitor closely. Suspect that this is related to chemical and medication intraoperatively rather than ongoing blood loss. We will continue to be carefully observed. Subjective Subjective Interval history since last seen: Patient seen and examined this evening. Blood pressures are significantly improved to the 120s over 70s. Pulse is in the 60s. Urine output is approximately 40 to 50 cc/h currently. She has had occasional episodes of waves of nausea with one episode of emesis. Also seen and evaluated by anesthesia. Clinically this appears to be medication sensitivity and not ongoing intra-abdominal blood loss, however this is not out of the range of possibilities. We will continue to monitor her vital signs closely. Check CBC in the morning, sooner if necessary. Medications for nausea and itching have been ordered. We will continue to monitor closely. Current status discussed with patient and her at length this evening. Exam Narrative Exam Narrative: Alert, oriented, no acute distress Const General: healthy appearing, comfortable and no acute distress Nutritional Appearance: average body habitus Orientation: alert and oriented x3 HENMT Head: normal to inspection Neck Neck: normal visual inspection Resp Effort & Inspection: normal respiratory effort, no audible wheezes and no cough Cardio Rate: regular rate Rhythm: regular rhythm GI Inspection: normal to inspection, non-distended and incision (dressing in place) Palpation: not firm, no guarding and no masses Auscultation: normal bowel sounds Skin General skin exam: no rashes or lesions noted Neuro General: patient alert and patient oriented x3 Extrem General: normal to inspection and no clubbing, cyanosis or edema Psych Appearance: grossly normal Objective Last Vital Signs Temp 97.3 F L 04/28/23 14:37 Pulse 67 04/28/23 16:12 Resp 16 04/28/23 15:00 BP 114/73 04/28/23 16:12 Pulse Ox 100 04/28/23 15:00 Time Spent with Patient Time Spent with Patient: <25 minutes Time was spent: preparing to see the patient(eg.review tests), obtaining and/or reviewing separately otained hiistory, referring, communicating with other health clinical care coordinator, indepentently interpreting results and counseling the patient
[2023-04-28] MEDS: Naloxone 0.4 MG/ML VIAL IVP ×2 (17:25→17:54)
[2023-04-28 18:28] LABS: HCT 33.9 % (36.0-46.0); HGB 11.5 g/dL (11.2-15.7); MCH 31.8 pg (27.0-33.0); MCHC 33.9 % (32.0-36.0); MCV 94 fL (80-95); Platelet Count 170 10^3/uL (130-400); RBC 3.62 10^6/uL (3.93-5.22); RDW 11.8 % (11.7-14.6)
--- NOTE | 2023-04-28 18:46 | PGE_ITS ---
Date of Service Date of service: 04/28/23 Time of Service: 18:46 Subjective Subjective Interval history since last seen: Patient had a second episode of emesis which prompted a check of her hemoglobin. Hemoglobin stable at 11.5. Appropriate drop from preoperative. Vital signs are stable. We will continue to medicate in order to gain control of her nausea and vomiting. Continue to monitor closely. CBC in the morning. Objective Last Vital Signs Temp 97.3 F L 04/28/23 14:37 Pulse 67 04/28/23 16:12 Resp 16 04/28/23 15:00 BP 114/73 04/28/23 16:12 Pulse Ox 100 04/28/23 15:00 Laboratory Results - last 24 hr 04/28/23 18:14 WBC 12.70 H RBC 3.62 L Hgb 11.5 Hct 33.9 L MCV 94 MCH 31.8 MCHC 33.9 RDW 11.8 Plt Count 170 MPV 11.0 Time Spent with Patient Time Spent with Patient: <25 minutes Time was spent: preparing to see the patient(eg.review tests), obtaining and/or reviewing separately otained hiistory, ordering medications,tests, procedures and referring, communicating with other health home care manager
[2023-04-28] MEDS: Docusate Sodium 100 MG CAP PO (22:01)
[2023-04-29] MEDS: Lactated Ringers 1,000 ML 125 ML IV (01:35)
[2023-04-29 04:00] VITALS: BP 108/59; PULSE 65; RESP 17; TEMP 36.6; O2SAT 98
[2023-04-29] MEDS: Ketorolac 30 MG/ML VIAL 15 MG IVP (04:06)
[2023-04-29] MEDS: Levothyroxine 100 MCG TAB PO (05:50)
[2023-04-29 07:16] LABS: HCT 31.6 % (36.0-46.0); HGB 10.7 g/dL (11.2-15.7); MCH 32.4 pg (27.0-33.0); MCHC 33.9 % (32.0-36.0); MCV 96 fL (80-95); Platelet Count 175 10^3/uL (130-400); RDW 12.2 % (11.7-14.6); RDW-SD 42.2 fL; WBC 10.61 10^3/uL (4.4-10.8)
--- NOTE | 2023-04-29 07:32 | W.PM.PROGNOT ---
Date of Service Date of service: 04/29/23 Time of Service: 07:33 Assessment and Plan Assessment and plan (1) Status post laparoscopic assisted vaginal hysterectomy (LAVH): Status: Acute Assessment and plan: Doing well. Stable VS. Stable HGB. D/C home Subjective Subjective Interval history since last seen: Patient seen and examined this AM. Feeling much better. No nausea. Tolerating PO. [place] out this AM Anticipate D/C today Exam Narrative Exam Narrative: Alert and oriented Const General: cooperative, healthy appearing, comfortable and no acute distress Nutritional Appearance: average body habitus HENID Head: normal to inspection Eyes General: appearance normal, both eyes and all related structures Neck Neck: normal visual inspection and supple Resp Effort & Inspection: normal respiratory effort and no cough Cardio Rate: regular rate Rhythm: regular rhythm GI Inspection: normal to inspection, non-distended and incision (dressed) Palpation: soft, not firm and no guarding Skin General skin exam: no rashes or lesions noted Neuro General: patient alert and patient oriented x3 Extrem General: normal to inspection and no clubbing, cyanosis or edema Objective Last Vital Signs Temp 97.9 F 04/29/23 04:00 Pulse 65 04/29/23 04:00 Resp 17 04/29/23 04:00 BP 108/59 L 04/29/23 04:00 Pulse Ox 98 04/29/23 04:00 Laboratory Results - last 24 hr 04/28/23 04/29/23 18:14 07:10 WBC 12.70 H 10.61 RBC 3.62 L 3.30 L Hgb 11.5 10.7 L Hct 33.9 L 31.6 L MCV 94 96 H MCH 31.8 32.4 MCHC 33.9 33.9 RDW 11.8 12.2 Plt Count 170 175 MPV 11.0 11.0 Time Spent with Patient Time Spent with Patient: <25 minutes Time was spent: preparing to see the patient(eg.review tests), ordering medications,tests, procedures, indepentently interpreting results and counseling the patient
--- NOTE | 2023-04-29 07:49 | W.PM.DS.N ---
Date of service: 04/29/23 Time of Service: 07:49 DS: Diagnosis Discharge Diagnosis (1) Status post laparoscopic assisted vaginal hysterectomy (LAVH): Status: Acute Asessment and Plan: Patient had an uncomplicated LAVH and was D/C'd home post op day #1 . Follow up in 1 and 6 weeks Discharge Plan Disposition Patient Disposition: Home Condition: Improving Discharge Details Admit Date/Time: 04/28/23 06:21 Admit Provider: Sasha Hawley Attending Provider: Sasha Hawley Primary Care Provider: Marylou Mcdowell Hospital Course Hospital Course: Patient underwent an uncomplicated LAVH with bilateral salpingectomy and cystoscopy. She had some nausea post operative day 0, which significantly improved given time, anti-emetics, and fluids. D/C home today with stable VS, Stable HGB, Ambulating, tolerating PO. Follow up in 1 and 6 weeks Home Meds and New Rx's Prescriptions: New ibuprofen [IBU] 800 mg tablet 800 mg PO Q8H Qty: 60 0RF docusate sodium [Colace] 100 mg capsule 100 mg PO BID Qty: 30 0RF oxycodone-acetaminophen [Percocet] 5-325 mg tablet 1 tab PO Q8H PRNQty: 7 0RF No Action turkey tail 1 cap PO DIRECTED Patient Comments: Mushroom supplement multivitamin [Multiple Vitamins] Tablet 1 tab PO DAILY magnesium oxide 400 mg magnesium tablet 400 mg PO DAILY cranberry 400 mg capsule 400 mg PO DAILY Patient Comments: pt unsure of dose Rx Instructions: administer with a meal ascorbic acid-elderberry fruit 100-50 mg tablet,chewable 1 tab PO DAILY levothyroxine 100 mcg tablet 100 mcg PO DAILY Qty: 90 3RF Discharge Instructions Stand Alone Forms: DSU Post Flatwork Folder SurgeryW/Incision Activity:: Pelvic Rest x 6 months Equipment/Supplies:: No Equipment Needed Diet:: As Tolerated DS: Summary Time Spent with Patient providing and/or coordinating discharge services: Greater than 30 minutes Status at Discharge Functional status at discharge: independent ambulation Overall status at discharge: patient is progressing back to baseline Mental Status: mental status grossly normal Speech and Movement: speech and movement normal Mood: congruent mood Affect: normal affect Exam Psych Mental Status: mental status grossly normal Speech and Movement: speech and movement normal Mood: congruent mood Affect: normal affect DS: Data Vitals/I&O Vitals and I&O: Vital Signs Temperature 97.9 F 04/29/23 04:00 Temperature Source Tympanic 04/29/23 04:00 Pulse 65 04/29/23 04:00 Pulse Rhythm Regular 04/28/23 22:00 Respiratory Rate 17 04/29/23 04:00 Respiratory Effort Normal, Non-Labored 04/28/23 22:00 Respiratory Depth Normal 04/28/23 22:00 Respiratory Pattern Normal 04/28/23 22:00 Blood Pressure 108/59 L 04/29/23 04:00 Pulse Oximetry 98 04/29/23 04:00 Oxygen Delivery Method Room Air 04/29/23 04:00 Oxygen Flow Rate 0 04/29/23 04:00 Pain Level 0 04/29/23 07:20 Comment Patient having nausea at this time 04/28/23 16:07 Intake & Output 04/28/23 04/28/23 04/29/23 11:59 23:59 11:59 Intake Total 900 / 2574.583 1674.583 / 2574.583 812.5 / 812.5 Output Total 1265 / 1265 700 / 700 Balance 900 / 1309.583 409.583 / 1309.583 112.5 / 112.5 Weight 131 lb 134 lb Intake: IV 900 / 2249.583 1349.583 / 2249.583 812.5 / 812.5 Oral 325 / 325 Output: Urine 665 / 665 700 / 700 Emesis 600 / 600 Other: Urine Color Yellow Yellow Yellow Urine Appearance Clear Clear Clear Urine Odor None None Emesis Description None Undigested Food Voiding Methods Indwelling Catheter Indwelling Catheter Data Completed and Pending Labs on day of discharge: Labs from last 24 hours 04/29/23 04/28/23 07:10 18:14 WBC 10.61 12.70 H RBC 3.30 L 3.62 L Hgb 10.7 L 11.5 Hct 31.6 L 33.9 L MCV 96 H 94 MCH 32.4 31.8 MCHC 33.9 33.9 RDW 12.2 11.8 Plt Count 175 170 MPV 11.0 11.0 PFSH All Active Problems Status post laparoscopic assisted vaginal hysterectomy (LAVH) (Acute) LAVH with bilateral salpingectomy 04/27/2023. Uterine fibroid (Acute) Yeast vaginitis (Acute) Urinary tract infection (Acute) Family history of first degree relative with dementia (Chronic) M, early onset Elevated cholesterol (Chronic) DUB (dysfunctional uterine bleeding) (Acute) Bacterial vaginosis (Acute) Frequent headaches (Chronic) Mg++ preventative; stress-associated Abnormal vaginal bleeding (Acute) Spotting (Acute) Urinary urgency (Acute) History of tobacco use (Chronic) Hypothyroid (Chronic) [facility] Medical History Graves disease (05/15/14) [facility] 04/2014 Hyperthyroidism (04/18/14) Dx'ed 03/2014 (tachy on exam) REFER [facility] Infected sebaceous cyst of skin right cheek Surgical History excision Follicuolar cyst w/ BX rgt cheek (02/25/17) Family History Mother Alzheimer's disease with early onset Father Diabetes Hypothyroid Grandmother Diabetes Personal history of malignant neoplasm breast Social History Smoking/Tobacco Use Status: Former Tobacco Use Quit Date: 11/22/12 Smoking risk assessment performed?: Yes Alcohol Intake: never Drug use: Never Substance use type: does not use Adopted: No Caregiver/Support person: No Foster care: No Household members: spouse and children Housing: house Number of Children: 6 Communication Needs: None Education Level: high school Do you need help understanding health information?: Never 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 Pets and animals: Yes Pets and animals: cat(s) and dog(s) Sexually active: Yes Do you think of yourself as: straight/heterosexual Current gender identity: female What is your relationship status?: How often do you talk on the phone with friends or family?: three or more times per week How often do you get together with friends or relatives?: once per week Do you belong to any clubs or organized social groups?: no Panel score (0-1 are the most socially isolated patients): 2 What type of physical activity do you participate in: none Seatbelt use: always Helmet use: Yes Drive intox or ride w/intox class a truck driver: No Do you feel safe at home: Yes Do you feel safe in your relationship?: Yes Additional Social history: not able to interview privately Female Reproductive History Menstrual control method: pills (missed 2mo secondary to insurance issues. now + upt) and other (spouse had vasectomy) History History 4 Para 4 Hx # Term Pregnancies 4 Multiple births 0 Hx # Pregnancies 0 Ectopic pregnancies 0 AB induced 0 Hx Number of Living Children 4 AB spontaneous 0 Past Pregnancies Del. Date GA/Weeks # Preg Succ Route Wgt Sex Labor Lgth Anesthesia Location Prov Complic 01/16/10 39 No vaginal 7 lb 11 oz Male 3 hrs [facility] - Dr. Valladares 12/31/11 38 No vaginal 7 lb 13 oz Female very fast, delivered on arrival [facility] - Dr. Valladares 10/09/16 38 No vaginal Female 3 hrs [facility] - [facility] 05/18/19 39 No vaginal 8 lb 13 oz Male 1 hour 26 min. Ousmane Ag CNM Delivery Date: 10/09/16 Last Updated by: Flores Zhang nuchal arm Delivery Date: 05/18/19 Last Updated by: Mily Barr LPN precipitous labor ( < 3 hrs.) Time Spent with Patient Time Spent with Patient: <45 minutes Time was spent: preparing to see the patient(eg.review tests), ordering medications,tests, procedures, indepentently interpreting results and counseling the patient
[2023-04-29] MEDS: Docusate Sodium 100 MG CAP PO (07:58)
[2023-04-29] MEDS: Magnesium Oxide 400 MG TAB PO (07:58)
[2023-04-29 08:15] VITALS: BP 100/57; PULSE 88; RESP 12; TEMP 36.7; O2SAT 100
== END 2023-04-29 09:15 | disposition home or self-care (01) | DRG 743 ==
LOC: PDS 06:58 → OBS 04-29 07:49 → PDS 04-29 08:14
PROVIDERS: Admitting Provider Obstetrics & Gynecology; PCP Nurse Practitioner Adult Health; Visit Provider Obstetrics & Gynecology
PROC: 0UT9FZZ Resection of Uterus, Via Natural or Artificial Opening With Percutaneous Endoscopic Assistance (ICD-10-PCS; CPT 58552; principal; 2023-04-28 07:30)
DX: D25.9 Leiomyoma of uterus, unspecified (principal); N93.8 Other specified abnormal uterine and vaginal bleeding; R11.2 Nausea with vomiting, unspecified; N83.8 Other noninflammatory disorders of ovary, fallopian tube and broad ligament
CPT/HCPCS: 58552; 52000; 36410; 36415; 85027; 88307; J0131; J0690; J1100; J1885; J2250; J2310; J2405; J2704; J3010; J3475

== ENCOUNTER 2024-03-23 04:56 | Outpatient (CLI) | payer OTHER, SELFPAY ==
[2024-03-23 07:39] LABS: Calculated LDL 140 mg/dL (<100); Cholesterol 238 mg/dL (<200); HDL Cholesterol 82 mg/dL (40-60); TSH (W/Ref FT4) 1.18 uIU/mL (0.36-3.74); Triglyceride 83 mg/dL (<150)
== END 2024-03-23 04:57 | disposition home or self-care (01) ==
LOC: LBO 04:56
PROVIDERS: PCP Nurse Practitioner Adult Health; Visit Provider Nurse Practitioner Adult Health
DX: E03.9 Hypothyroidism, unspecified (principal); E78.00 Pure hypercholesterolemia, unspecified
CPT/HCPCS: 36415; 80061; 84443

== ENCOUNTER 2025-05-04 00:28 | Outpatient (CLI) | payer OTHER, SELFPAY ==
--- NOTE | 2025-05-04 08:00 | DI.MAMMO_ITS ---
Exam(s) MAMMO SCREENING EXAM: MAMMO SCREENING CLINICAL HISTORY: screening,Z12.39. TECHNIQUE: Bilateral full field digital CC and MLO mammographic images were obtained with 3D tomosynthesis and utilizing computer aided detection (CAD). COMPARISON: . This is a baseline mammogram on this 39-year-old. FINDINGS: Fibroglandular tissue pattern is moderately dense, this somewhat decreasing the sensitivity of the mammogram for finding hidden underlying lesions. There are no obvious spiculated masses. There are microcalcifications which are more numerous in the right breast. There is 1 group which should undergo spot Mag views. This is located 3 cm in from the nipple on the CC view. There is no significant architectural distortion nor skin thickening-retraction. IMPRESSION: Dense bilateral fibroglandular tissue. One group of microcalcifications in the right breast should undergo spot Mag views including 2D spot Mag cc view and spot Mag 2D straight lateral view. BI-RADS Category 0 - Incomplete: Need additional imaging evaluation Breast Density - Category C - The breast are heterogeneously dense, which may obscure small masses. Breast density Category C or D implies that the patient has dense breast tissue. Dense breast tissue can make it harder to find cancer on a mammogram. Dense breast tissue is also associated with an increased risk of breast cancer. This information about the result of the mammogram report was provided to the patient to raise their awareness. Use this report when you speak with the patient about their risks for breast cancer, which includes their family history. At that time, you may recommend additional screening tests (Ultrasound or MRI) as these tests may add significant information. A negative radiographic report should not delay biopsy if a dominant or clinically suspicious mass is present. Up to ten percent of cancers are not identified on mammography. A negative report may reinforce clinical impression. Adenosis and dense breasts may obscure an underlying neoplasm. False positive reports average 6 to 10%. Patient will receive a letter notifying them of these results.
== END 2025-05-04 00:48 ==
LOC: DI 00:28
PROVIDERS: PCP Nurse Practitioner Adult Health; Visit Provider Nurse Practitioner Adult Health
DX: Z12.31 Encounter for screening mammogram for malignant neoplasm of breast (principal); R92.333 Mammographic heterogeneous density, bilateral breasts
CPT/HCPCS: 77063; 77067

== ENCOUNTER 2025-05-15 02:07 | Outpatient (CLI) | payer OTHER, SELFPAY ==
--- NOTE | 2025-05-15 | DI.MAMMO_ITS ---
Exam(s) MAMMO SCREEN CALL BACK UNI EXAM: MAMMO SCREEN CALL BACK UNI INDICATION: F/U MAMMO, R92.8,RT BREAST MICROCALCIFICATIONS. COMPARISON: [facility] MAMMO SCREENING from 05/04/2025 TECHNIQUE: Spot magnification cc view was performed. FINDINGS: There are multiple coarse and punctate calcifications scattered through both breasts, right greater than left. No suspicious pleomorphic calcifications are identified. There are no visible masses. IMPRESSION: Benign appearing calcifications. Recommend bilateral screening mammography in 1 year. BI-RADS Category 2 - Benign Findings Breast Density - Category C - The breast are heterogeneously dense, which may obscure small masses. Breast density Category C or D implies that the patient has dense breast tissue. Dense breast tissue can make it harder to find cancer on a mammogram. Dense breast tissue is also associated with an increased risk of breast cancer. This information about the result of the mammogram report was provided to the patient to raise their awareness. Use this report when you speak with the patient about their risks for breast cancer, which includes their family history. At that time, you may recommend additional screening tests (Ultrasound or MRI) as these tests may add significant information. A negative radiographic report should not delay biopsy if a dominant or clinically suspicious mass is present. Up to ten percent of cancers are not identified on mammography. A negative report may reinforce clinical impression. Adenosis and dense breasts may obscure an underlying neoplasm. False positive reports average 6 to 10%. Patient will receive a letter notifying them of these results.
== END 2025-05-15 02:27 ==
LOC: DI 02:07
PROVIDERS: PCP Nurse Practitioner Adult Health; Visit Provider Nurse Practitioner Adult Health
DX: Z12.31 Encounter for screening mammogram for malignant neoplasm of breast (principal); R92.8 Other abnormal and inconclusive findings on diagnostic imaging of breast; R92.333 Mammographic heterogeneous density, bilateral breasts; D24.1 Benign neoplasm of right breast; D24.2 Benign neoplasm of left breast
CPT/HCPCS: 77063; 77067

== ENCOUNTER 2025-05-21 08:26 | Outpatient (CLI) | payer OTHER, SELFPAY ==
[2025-05-21 15:56] LABS: TSH (W/Ref FT4) 1.21 uIU/mL (0.36-3.74)
== END 2025-05-21 08:27 | disposition home or self-care (01) ==
LOC: LBO 08:26
PROVIDERS: PCP Nurse Practitioner Adult Health; Visit Provider Nurse Practitioner Adult Health
DX: E03.9 Hypothyroidism, unspecified (principal)
CPT/HCPCS: 36415; 84443

== ENCOUNTER 2025-07-09 11:37 | Outpatient (CLI) | payer OTHER, SELFPAY ==
[2025-07-09 14:16] LABS: HCT 42.6 % (36.0-46.0); HGB 14.3 g/dL (11.2-15.7); MCH 31.0 pg (27.0-33.0); MCHC 33.6 % (32.0-36.0); MCV 92 fL (80-95); MPV 10.9 fL (8.0-11.0); Platelet Count 213 10^3/uL (130-400); RBC 4.62 10^6/uL (3.93-5.22); RDW 11.9 % (11.7-14.6); RDW-SD 40.4 fL; WBC 6.87 10^3/uL (4.4-10.8)
[2025-07-09 15:22] LABS: ALT 19 U/L (14-59); AST 14 U/L (15-37); Albumin 4.3 g/dL (3.4-5.0); Alkaline Phosphatase 70 U/L (46-116); Anion Gap 6.2 mmol/L (3-11); BUN 12 mg/dL (7-18); Bilirubin, Total 0.5 mg/dL (0.2-1.0); CO2 30.8 mmol/L (21.0-32.0); Calcium 9.2 mg/dL (8.5-10.1); Chloride 101 mmol/L (98-107); Estimated GFR 112.05 (mL/min/1.73m2); Ferritin 82 ng/mL (8-252); Glucose 90 mg/dL (74-106); Potassium 3.9 mmol/L (3.5-5.1); Sodium 138 mmol/L (136-145); Total Protein 8.5 g/dL (6.4-8.2); Vitamin B12 639 pg/mL (193-986); Vitamin D 25 Total 36 ng/mL (30-100)
[2025-07-09 15:25] LABS: Folate > 20.0 ng/mL (8.6-20.0)
[2025-07-09 22:43] LABS: T3, Total 110 ng/dL (97-169)
[2025-07-13 10:09] LABS: Dehydroepiandrosterone (DHEA) 2.8 ng/mL (<10)
== END 2025-07-09 11:38 | disposition home or self-care (01) ==
LOC: LBO 11:37
PROVIDERS: PCP Nurse Practitioner Adult Health; Visit Provider Nurse Practitioner Adult Health
DX: L65.9 Nonscarring hair loss, unspecified (principal)
CPT/HCPCS: 36415; 80053; 82306; 85027; 82607; 82626; 82728; 82746; 84439; 84480